=== PATIENT | female | born 1990 | race Caucasian/White ===

== ENCOUNTER 2021-03-06 21:50 | Emergency (ER) | payer OTHER | END 2021-03-07 01:00 | disposition home or self-care (01) | LOC: ER1 21:50 | DX: F32.9 Major depressive disorder, single episode, unspecified (principal); G47.00 Insomnia, unspecified; F41.9 Anxiety disorder, unspecified; R11.10 Vomiting, unspecified; I10 Essential (primary) hypertension; Z88.1 Allergy status to other antibiotic agents; Z90.49 Acquired absence of other specified parts of digestive tract | CPT/HCPCS: 99283 ==